=== PATIENT | male | born 1985 | race Hispanic/Latino ===

== ENCOUNTER → 2017-04-02 | Outpatient (CLI) | payer OTHER ==
--- NOTE | 2017-04-04 20:41 | SLEEPCENT ---
DATE OF PROCEDURE: 04/02/2017 ORDERED: Carolee Worley Nocturnal polysomnography was performed for evaluation of sleep physiology in this patient with a history of excessive somnolence and nonrestorative sleep, comorbidities of post-traumatic stress disorder (PTSD). 7 hours and 33 minutes of data were reviewed. There were 388 minutes of sleep identified. Sleep latency was prolonged at 41 minutes. Rapid eye movement (REM) latency was prolonged at 107 minutes. Sleep architecture was fair with three REM periods appreciated. Fragmentation was noted throughout the study. Overall sleep efficiency was 86%, but there was a reduction in REM time. The patient's EKG showed a sinus rhythm with an average heart rate of 70 beats per minute. Rate variability was seen surrounding respiratory events, rate ranged 60 to 90 beats per minute. EEG showed normal waveforms for awake and sleep. There were 33 respiratory events identified of 10 seconds in duration or greater for an apnea-hypopnea index of 5.3. The events were primarily obstructive, not exclusive to sleep stage but more frequent in the supine posture. Arousals from respiratory events occurred 4.2 times per hour and oxygen desaturations were seen into the upper 80s. Remaining measures of sleep physiology were normal. IMPRESSION: Mild positional obstructive sleep apnea syndrome (G47.33), apnea-hypopnea index of 5.3. RECOMMENDATION: Sleep position retraining for avoidance of the supine posture may be sufficient to address the patient's problems. If sleep symptoms persist, referral back to the sleep disorder center for pressure therapy would be recommended. Copy To: Dr. Barker
== END ==
LOC: M SLEEP 20:00
PROVIDERS: ATTEND Nurse Practitioner Adult Health
DX: G47.30 Sleep apnea, unspecified (principal)

== ENCOUNTER → 2017-06-27 | Outpatient (REF) | payer OTHER ==
[2017-06-27 20:40] LABS: BASO % 0.5 % (0.0-1.0); EOS # 0.1 10^3/uL (0.0-0.50); EOS % 1.5 % (0.0-3.0); HEMATOCRIT 48.4 % (42.0-52.0); HEMOGLOBIN 16.4 g/dl (14.0-18.0); IMMATURE GRANULOCYTE % 0.3 % (0-0); LYMPH # 2.6 10^3/uL (1.5-4.5); LYMPH % 29.8 % (24.0-44.0); MEAN CORPUSCULAR HEMOGLOBIN 27.5 pg (27.0-33.0); MEAN CORPUSCULAR HGB CONC 33.9 g/dl (32.0-36.5); MEAN CORPUSCULAR VOLUME 81.2 fl (80.0-96.0); MONO # 0.6 10^3/uL (0.0-0.8); MONO % 7.2 % (0.0-5.0); NEUTROPHILS # 5.3 10^3/uL (1.8-7.7); NEUTROPHILS % 60.7 % (36.0-66.0); PLATELET COUNT, AUTOMATED 264 10^3/uL (150-450); RED BLOOD COUNT 5.96 10^6/uL (4.30-6.10); RED CELL DISTRIBUTION WIDTH 12.5 % (11.5-14.5); WHITE BLOOD COUNT 8.7 10^3/uL (4.0-10.0)
[2017-06-27 20:58] LABS: ALBUMIN 4.3 GM/DL (3.2-5.2); ALBUMIN/GLOBULIN RATIO 1.23 (1.00-1.93); ALKALINE PHOSPHATASE 59 U/L (45-117); ALT/SGPT 52 U/L (12-78); ANION GAP 7 MEQ/L (8-16); AST/SGOT 23 U/L (7-37); BILIRUBIN,TOTAL 0.4 MG/DL (0.2-1.0); BLOOD UREA NITROGEN 14 MG/DL (7-18); CALCIUM LEVEL 9.4 MG/DL (8.5-10.1); CARBON DIOXIDE LEVEL 32 MEQ/L (21-32); CHLORIDE LEVEL 100 MEQ/L (98-107); CREATININE FOR GFR 1.26 MG/DL (0.70-1.30); GLOMERULAR FILTRATION RATE > 60.0 (>60); GLUCOSE, FASTING 86 MG/DL (70-105); POTASSIUM SERUM 4.1 MEQ/L (3.5-5.1); SODIUM LEVEL 139 MEQ/L (136-145); TOTAL PROTEIN 7.8 GM/DL (6.4-8.2); TROPONIN I < 0.02 NG/ML (< 0.10)
[2017-06-27 20:58] LABS: D-DIMER QUANT < 270.0 ng/ml (<500)
== END ==
LOC: M SFHCLERA 19:49
DX: R07.89 Other chest pain (principal)